=== PATIENT | male | born 1985 | race Caucasian/White ===

== ENCOUNTER 2018-09-28 07:15 | Emergency (ER) | payer OTHER ==
[2018-09-28] MEDS ORDERED: Acetaminophen 500 MG TAB ONE (07:39)
[2018-09-28] MEDS ORDERED: Amoxicillin/Potassium Clav 875 MG TAB ONE (07:39)
== END 2018-09-28 07:44 | disposition home or self-care (01) ==
LOC: SCSER 07:15
DX: J01.90 Acute sinusitis, unspecified (principal); F41.9 Anxiety disorder, unspecified; F17.200 Nicotine dependence, unspecified, uncomplicated; F32.9 Major depressive disorder, single episode, unspecified
CPT/HCPCS: 99283